=== PATIENT | male | born 1945 | race Caucasian/White ===

== ENCOUNTER 2018-06-09 13:34 | Inpatient (IN) | payer OTHER ==
[2018-06-10] MEDS ORDERED: ACETAMINOPHEN 500 MG TABLET (FP) PO PRN (17:02)
--- NOTE | 2018-06-10 17:06 | HP ---
Admitting History and Physical - Primary Care Physician PCP: Patito Valdovinos - Admission History of Present Illness: this is a very pleasant 72-year-old right-handed Chinese-speaking man with history of Coronary artery disease Osteoarthritis Mild dementia Liver cirrhosis Hepatitis C Presented to the hospital for elective admission for video EEG monitoring Patient is well known to me from the office patient is on Keppra no report of any seizure recently. History Source: Patient Limitations to Obtaining History: No Limitations Family Disease History - Family Disease History Family History: Unable to Obtain Review of Systems - Review of Systems Constitutional: reports: No Symptoms Eyes: reports: No Symptoms Physical Examination Constitutional: Yes: Well Nourished Eyes: Yes: WNL Neurological: Yes: Alert, Oriented, Babinski negative ...Motor Strength: WNL Problem List - Problems (1) Epilepsy Assessment/Plan: 1. Seizure precautions. 2. Ativan when necessary seizure. 3. Tylenol when necessary headache. 4. Blood work. 5. Authorization from the insurance company approved for 72 hours video EEG monitoring Code(s): G40.909 - EPILEPSY, UNSP, NOT INTRACTABLE, WITHOUT STATUS EPILEPTICUS
[2018-06-10 17:23] VITALS: BMI 24.3
[2018-06-10] MEDS: levETIRAcetam 500 MG TABLET (FP) PO SCH (21:06)
[2018-06-10 21:22] LABS: HEMOGLOBIN 12.4 GM/dL (11.7-16.9); MCH 26.4 pg (25.7-33.7); MCHC 31.9 g/dl (32.0-35.9); MEAN CELL VOLUME 82.9 fl (80-96); PLATELET COUNT 104 K/MM3 (134-434); RDW 14.5 % (11.9-15.9); WHITE BLOOD COUNT 3.1 K/mm3 (4.0-10.0)
[2018-06-10 22:01] LABS: ALBUMIN 3.5 g/dl (3.4-5.0); ALK PHOS 129 U/L (45-117); ANION GAP 3 MMOL/L (8-16); BILIRUBIN,DIRECT 0.2 mg/dL (0.0-0.2); BILIRUBIN,TOTAL 0.6 mg/dL (0.2-1); BLOOD UREA NITROGEN 16 mg/dL (7-18); CALCIUM 8.4 mg/dL (8.5-10.1); CHLORIDE 105 mmol/L (98-107); CO2 31 mmol/L (21-32); CREATININE 1.2 mg/dL (0.55-1.3); GLUCOSE,RANDOM 77 mg/dL (74-106); POTASSIUM 3.8 mmol/L (3.5-5.1); SGOT/AST 31 U/L (15-37); SGPT/ALT 31 U/L (13-61); SODIUM 140 mmol/L (136-145); TOT PROT 7.7 g/dl (6.4-8.2)
[2018-06-11] MEDS ORDERED: PT OWN MED DRAWER 7, Y5N ONE (09:53)
[2018-06-11] MEDS: ASPIRIN 81 MG CHEWABLE TABLETS PO SCH (09:57)
[2018-06-11] MEDS: LISINOPRIL 20 MG TABLET (FP) PO SCH (09:57)
[2018-06-11] MEDS: levETIRAcetam 500 MG TABLET (FP) PO SCH ×2 (09:57→21:48)
--- NOTE | 2018-06-11 13:38 | EKG ---
Test Reason : Blood Pressure : / mmHG Vent. Rate : 071 BPM Atrial Rate : 071 BPM P-R Int : 188 ms QRS Dur : 110 ms QT Int : 398 ms P-R-T Axes : 061 013 036 degrees QTc Int : 432 ms NORMAL SINUS RHYTHM MINIMAL VOLTAGE CRITERIA FOR LVH, MAY BE NORMAL VARIANT BORDERLINE ECG NO PREVIOUS ECGS AVAILABLE Confirmed by DORENE CRUZ MD ([id number]) on 06/11/2018 1:37:47 PM Referred By: Confirmed By:DORENE CRUZ MD
[2018-06-11] MEDS ORDERED: FUROSEMIDE 20 MG TABLET (FP) PO ONE (16:15)
--- NOTE | 2018-06-11 19:26 | PN ---
Progress Note, Physician History of Present Illness: doing well No events No seizure On VEEG Recording is ok Noted at night spike left temporal lobe On Keppra Was hemodyncally unstable with BP - Current Medication List Current Medications: Active Medications Acetaminophen (Tylenol -) 500 mg PO Q6H PRN PRN Reason: PAIN OR FEVER Aspirin (Asa -) 81 mg PO DAILY [facility] Last Admin: 06/11/18 09:57 Dose: 81 mg Levetiracetam (Keppra -) 500 mg PO BID [facility] Last Admin: 06/11/18 09:57 Dose: 500 mg Lisinopril (Prinivil) 20 mg PO DAILY [facility] Last Admin: 06/11/18 09:57 Dose: 20 mg - Objective Vital Signs: Vital Signs Temperature 97.8 F 06/11/18 18:00 Pulse Rate 70 06/11/18 18:00 Respiratory Rate 18 06/11/18 18:00 Blood Pressure 145/94 06/11/18 18:00 O2 Sat by Pulse Oximetry (%) 97 06/11/18 09:00 Constitutional: Yes: Well Nourished Eyes: Yes: WNL Neurological: Yes: Alert, Oriented, Babinski negative ...Motor Strength: WNL Labs: CBC, BMP 06/10/18 20:00 06/10/18 20:00 Problem List - Problems (1) Epilepsy Assessment/Plan: 1. Cardiology eval 2. Sz precaution 3. Keppra the same Code(s): G40.909 - EPILEPSY, UNSP, NOT INTRACTABLE, WITHOUT STATUS EPILEPTICUS
[2018-06-12] MEDS: LISINOPRIL 20 MG TABLET (FP) PO SCH (09:21)
[2018-06-12] MEDS: ASPIRIN 81 MG CHEWABLE TABLETS PO SCH (09:21)
[2018-06-12] MEDS: levETIRAcetam 500 MG TABLET (FP) PO SCH (09:21)
--- NOTE | 2018-06-12 10:43 | CON.CARD ---
Consult Consult Specialty:: Cardiology Referred by:: Patito Orta MD Reason for Consultation:: CAD, HTN - History of Present Illness Chief Complaint: Seizure d/o History of Present Illness: 72-year-old right-handed Faroese-speaking man with history of Coronary artery disease, Osteoarthritis, Mild dementia, Liver cirrhosis, Hepatitis C admitted to the hospital for elective admission for video EEG monitoring, is on Keppra without report of any seizure recently. Patient denies symptoms of chest pain, dyspnea, near or true syncope, palpitations, orthopnea, PND or LE edema. No seizures overnight, spike left temporal lobe noted at night and continues on Keppra. - History Source History Provided By: Medical Record Limitations to Obtaining History: Poor Historian - Alcohol/Substance Use Hx Alcohol Use: No - Smoking History Smoking history: Never smoked Have you smoked in the past 12 months: No Home Medications - Allergies Allergies/Adverse Reactions: Allergies Allergy/AdvReac Type Severity Reaction Status Date / Time No Known Allergies Allergy Verified 06/10/18 17:43 Vital Signs: Vital Signs Temperature 98.4 F 06/12/18 06:00 Pulse Rate 65 06/12/18 06:00 Respiratory Rate 18 06/12/18 06:00 Blood Pressure 129/87 06/12/18 06:00 O2 Sat by Pulse Oximetry (%) 95 06/11/18 20:30 Constitutional: Yes: No Distress, Calm, Thin Neck: Yes: Supple Respiratory: Yes: Regular, CTA Bilaterally Gastrointestinal: Yes: Normal Bowel Sounds, Soft Cardiovascular: Yes: Regular Rate and Rhythm JVD: No Carotid Bruit: No Heart Sounds: Yes: S1, S2 Edema: No - Other Data Labs, Other Data: CBC, BMP 06/10/18 20:00 06/10/18 20:00 NSR @ 71 min criteria LVH Ejection Fraction %: LVEF > or = 40 % Problem List - Problems (1) Cirrhosis Code(s): K74.60 - UNSPECIFIED CIRRHOSIS OF LIVER Qualifiers: Hepatic cirrhosis type: other cirrhosis Qualified Code(s): K74.69 - Other cirrhosis of liver (2) Hepatitis C Code(s): B19.20 - UNSPECIFIED VIRAL HEPATITIS C WITHOUT HEPATIC COMA Qualifiers: Viral hepatitis chronicity: unspecified (3) Hypertensive heart disease Code(s): I11.9 - HYPERTENSIVE HEART DISEASE WITHOUT HEART FAILURE Qualifiers: Heart failure presence: without heart failure Qualified Code(s): I11.9 - Hypertensive heart disease without heart failure (4) Coronary artery disease Code(s): I25.10 - ATHSCL HEART DISEASE OF [place] CORONARY ARTERY W/O ANG PCTRS Qualifiers: Coronary Disease-Associated Artery/Lesion type: [place] artery [place] vs. transplanted heart: [place] heart Associated angina: without angina Qualified Code(s): I25.10 - Atherosclerotic heart disease of [place] coronary artery without angina pectoris (5) Epilepsy Code(s): G40.909 - EPILEPSY, UNSP, NOT INTRACTABLE, WITHOUT STATUS EPILEPTICUS Qualifiers: Epilepsy type: unspecified Assessment/Plan 1. Seizure d/o monitoring on video EEG 2. CAD, angina pectoris 3. Hypertensive heart disease 4. Liver cirrhosis, hep C P:1. Continue ASA 81 qd, lisinopril 20 qd, add Nadolol 20 qd with uptitration as hemodynamics tolerate 2. Check TSH, lipid panel, Ha1c, echo as outpatient 3. [place], video EEG monitoring, seizure precautions 4. Thank you for consultative opportunity
[2018-06-12] MEDS ORDERED: metoPROLOL SUCCINATE 25 MG TAB.SR.24H (FP) PO SCH (11:00)
[2018-06-12] MEDS ORDERED: NADOLOL 20 MG TABLET (FP) PO SCH (11:00)
[2018-06-12 14:55] VITALS: BP 127/83; PULSE 60; TEMP 98
== END 2018-06-12 18:21 | disposition home or self-care (01) | DRG 101 ==
LOC: J4S 06-10 16:32
PROVIDERS: ADMIT Psychiatry & Neurology Neurology; ATTEND Psychiatry & Neurology Neurology
PROC: 4A10X4Z Monitoring of Central Nervous Electrical Activity, External Approach (ICD-10-PCS; principal; 2018-06-10)
DX: G40.909 Epilepsy, unspecified, not intractable, without status epilepticus (principal); I25.10 Atherosclerotic heart disease of native coronary artery without angina pectoris; F03.90 Unspecified dementia, unspecified severity, without behavioral disturbance, psychotic disturbance, mood disturbance, and anxiety; K74.60 Unspecified cirrhosis of liver; B19.20 Unspecified viral hepatitis C without hepatic coma; I11.9 Hypertensive heart disease without heart failure
CPT/HCPCS: 36415; 80048; 80076; 85027; 93005; 93010; 95951; 95956